=== PATIENT | male | born 1945 | race Caucasian/White ===

== ENCOUNTER 2018-05-08 13:09 | Inpatient (IN) | payer MEDICARE ==
[2018-05-08] MEDS ORDERED: Acetaminophen 500 MG TAB ONE (14:55)
[2018-05-08] MEDS ORDERED: Ibuprofen 200 MG TAB ONE (14:55)
[2018-05-08] MEDS ORDERED: Piperacillin/Tazobactam 4.5 GM VIAL ONE (15:22)
[2018-05-08] MEDS ORDERED: Azithromycin 500 MG VIAL ONE (15:33)
[2018-05-08] MEDS ORDERED: Ondansetron ODT 4 MG TAB PO PRN (17:18)
[2018-05-08 18:14] LABS: Hemoglobin 14.8 g/dL (14.0-18.0); Mean Corpuscular HGB CONC 35.4 g/dL (32.0-36.0); Mean Corpuscular Volume 87.7 fL (78.0-98.0); RBC Distribution Width 12.6 % (11.5-14.5); Red Blood Cell (RBC) Count 4.77 mill/uL (4.70-6.10); White Blood Cell (WBC) Count 12.2 thou/uL (4.8-10.8)
[2018-05-08] MEDS ORDERED: Sodium Chloride 0.9% 1,000 ML IV SCH (18:15)
[2018-05-08 18:16] LABS: #Lymphocytes 0.7 thou/uL (1.20-3.40); #Monocytes 0.6 thou/uL (0.11-0.59); #Neutrophils 10.9 thou/uL (1.40-6.50); %Basophils 0.2 % (0.0-1.0); %Lymphocytes 5.6 % (21.0-51.0); %Monocytes 4.6 % (0.0-10.0); %Neutrophils 89.6 % (42.0-75.0); Mean Platelet Volume 9.2 fL (7.4-10.4); Platelet Count 114 thou/uL (130-400)
[2018-05-08 18:34] LABS: ALT (SGPT) 10 U/L (8-55); AST (SGOT) 14 U/L (5-34); Albumin 3.7 g/dL (3.4-4.8); Alkaline Phosphatase 60 U/L (40-150); Anion Gap 13 mmol/L (10-20); BUN (Urea Nitrogen) 19 mg/dL (8.4-25.7); Bilirubin, Total 1.7 mg/dL (0.2-1.2); Calc. Creatinine Clearance 0 mL/min (70-130); Calcium 8.8 mg/dL (7.8-10.44); Carbon Dioxide 19 mmol/L (23-31); Chloride 106 mmol/L (98-107); Estimated GFR-MDRD 50; Globulin 2.6 g/dL (2.4-3.5); Glucose 143 mg/dL (83-110); Protein, Total 6.3 g/dL (5.8-8.1); Sodium 134 mmol/L (136-145)
[2018-05-08] MEDS ORDERED: VANCOMYCIN IVPB PRN (19:04)
[2018-05-08] MEDS: Sodium Chloride 0.9% 1,000 ML IV SCH (20:44)
[2018-05-08] MEDS: Piperacillin/Tazobactam 4.5 GM in Sodium Chloride 0.9% 100 ML IVPB SCH (20:56)
[2018-05-08] MEDS ORDERED: Vancomycin HCl 1 GM in Sodium Chloride 0.9% 250 ML 300 ML IVPB SCH (21:00)
[2018-05-08] MEDS: Famotidine 20 MG TAB PO SCH (21:08)
--- NOTE | 2018-05-08 21:40 | PDOC.EVN ---
Event Note - Event Note Event Note: Spoke to patient's and patient about his code status. Per patient's , patient had some ribs removed from his chest, and a wire is placed. However, patient still wants full CPR and Resuscitation. Conversation regarding DNR status, and whether to intubate or not to intubate was approximately 16 minutes. I have put the order in for Full Resuscitation.
[2018-05-08 22:05] LABS: Bilirubin Negative (Negative); Blood, Urine Small (Negative); Clarity CLEAR (Clear); Glucose, Urine (Dipstick) Negative (Negative); Leukocyte Negative (Negative); Nitrite Negative (Negative); Protein, Urine (Dipstick) 100 mg/dL (Neg-Trace); Specific Gravity, Urine 1.016 (1.002-1.036)
[2018-05-08 22:06] LABS: Bacteria/HPF None Seen HPF (None Seen); Hyaline Casts/LPF 0-3 HYALINE CAST LPF (0-3 Hyaline); RBC/HPF 0-3 HPF (0-3); Squamous Epithelial 0-3 HPF (0-3)
[2018-05-08 22:14] LABS: Legionella Urinary Ag Negative (Negative); Sperm/HPF 2+ HPF (None Seen); Strep pneumo Urine Ag NEGATIVE (NEGATIVE)
[2018-05-08] MEDS: Acetaminophen 325 MG TAB PO PRN (22:28)
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
[2018-05-09] MEDS: Piperacillin/Tazobactam 4.5 GM in Sodium Chloride 0.9% 100 ML IVPB SCH ×3 (00:39→11:06)
[2018-05-09] MEDS: Aspirin 81 mg Enteric Coated Tablet PO SCH (08:14)
[2018-05-09] MEDS: Famotidine 20 MG TAB PO SCH (08:14)
[2018-05-09] MEDS: Amlodipine 5 MG TAB PO SCH (08:14)
[2018-05-09] MEDS: Rosuvastatin 10 MG TAB PO SCH (08:14)
[2018-05-09] MEDS: Lisinopril 20 MG TAB PO SCH (08:14)
[2018-05-09] MEDS: Acetaminophen 325 MG TAB PO PRN ×3 (08:15→23:13)
[2018-05-09] MEDS: Sodium Chloride 0.9% 1,000 ML IV SCH (08:17)
[2018-05-09 11:53] LABS: #Basophils 0.1 thou/uL (0.0-0.2); #Lymphocytes 1.1 thou/uL (1.20-3.40); #Monocytes 0.5 thou/uL (0.11-0.59); #Neutrophils 7.2 thou/uL (1.40-6.50); %Basophils 1.1 % (0.0-1.0); %Eosinophils 0.3 % (0.0-10.0); %Monocytes 5.7 % (0.0-10.0); Hemoglobin 15.3 g/dL (14.0-18.0); Mean Corpuscular HGB CONC 34.5 g/dL (32.0-36.0); Mean Corpuscular Hemoglobin 30.6 pg (27.0-31.0); Mean Corpuscular Volume 88.9 fL (78.0-98.0); Platelet Count 118 thou/uL (130-400); RBC Distribution Width 12.6 % (11.5-14.5); Red Blood Cell (RBC) Count 5.01 mill/uL (4.70-6.10); White Blood Cell (WBC) Count 8.9 thou/uL (4.8-10.8)
[2018-05-09 12:13] LABS: ALT (SGPT) 18 U/L (8-55); AST (SGOT) 29 U/L (5-34); Albumin 3.9 g/dL (3.4-4.8); Alkaline Phosphatase 62 U/L (40-150); Anion Gap 13 mmol/L (10-20); BUN (Urea Nitrogen) 16 mg/dL (8.4-25.7); Bilirubin, Total 2.2 mg/dL (0.2-1.2); Calc. Creatinine Clearance 53 mL/min (70-130); Calcium 8.9 mg/dL (7.8-10.44); Carbon Dioxide 22 mmol/L (23-31); Chloride 104 mmol/L (98-107); Estimated GFR-MDRD 43; Globulin 2.8 g/dL (2.4-3.5); Glucose 92 mg/dL (83-110); Potassium 3.6 mmol/L (3.5-5.1); Protein, Total 6.7 g/dL (5.8-8.1); Sodium 135 mmol/L (136-145)
--- NOTE | 2018-05-09 14:50 | CON ---
DATE OF CONSULTATION: 05/09/2018 REASON FOR CONSULTATION: Bacteremia. HISTORY OF PRESENT ILLNESS: This is a 73-year-old with history of coronary artery disease with pacem ahsan as well as poor dentition with tooth abscess in the right molar region for the past few weeks, w ho developed early satiety with some nausea and then fever and chills. He waited to seafood. It was going to resolve, but it did not, so eventually was admitted to [facility] through [facility]. Here, we have 2/2 sets of blood cultures positive for a Streptococcus yet to be fully ident ified and susceptibility tested. The patient is awake and alert. Denies any headaches, no visual sy mptoms, sore throat, odynophagia, dysphagia, no back pain, no shoulder pain. No pain at this pacer s ite. No chest pain, no cough or dyspnea. No abdominal pain or diarrhea. No genitourinary symptoms. No other joint symptoms. PAST MEDICAL HISTORY: Coronary artery disease with prior stenting, hyperlipidemia, hypertension, cor onary artery bypass graft surgery with pacemaker insertion, gout, osteoarthritis, tooth abscess. SOCIAL HISTORY: Never smoker, drinks occasionally. 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 ALLERGIES: None. FAMILY HISTORY: Noncontributory. CURRENT MEDICATIONS: Tylenol, Norvasc, Ecotrin, Pepcid, Zestril, Toprol, Zofran, Zosyn, vancomycin. PHYSICAL EXAMINATION: VITAL SIGNS: T-max 102.9, now 101.4, blood pressure 120/62, pulse 64, respirations 18. SKIN EXAM: With no areas of skin breakdown. Peripheral IV access. No Denis catheter. HEENT: Ocular movements conjugate. Nasal passages patent. Sclerae white. Conjunctivae normal. NECK: Supple. Oral cavity with a few remaining teeth. Remainder ones with marked decay and gum dis ease. LUNGS: With clear breath sounds. HEART: S1 and S2, without obvious murmurs. Pacer pocket site without evidence of inflammatory aguilar es. ABDOMEN: Soft, mildly distended, no ascites, no organomegaly or tenderness. No bladder distention. GENITAL EXAMINATION: Normal. EXTREMITIES: No joint inflammatory activity. Pulses 1+ in dorsalis pedis. Plantar responses are fl exor. NEUROLOGIC EXAMINATION: Nonfocal. LABORATORY DATA: White cell count 12.2 and 8.9, hemoglobin 14.8, platelets 114, 89% neutrophils. So dium 134, creatinine 1.38 and 1.59, bilirubin 1.7 and now 2.2. Transaminases and alkaline phosphatas e normal, albumin 3.7. Urinalysis with 7-10 wbc's and serology with negative legionella, haemophilus , Strep pneumoniae antigen. IMAGING STUDIES: A chest CT was done on 05/08/2018 with no acute cardiopulmonary disease and pacemak er in situ. ASSESSMENT: 1. Coronary artery disease with prior pacemaker. 2. Poor dentition with tooth abscess. 3. Streptococcal bacteremia, 2/2 sets on admission. 4. Pacemaker. DISCUSSION: Differential diagnosis includes pacemaker colonization/endocarditis secondary to one of the oral cavity Streptococci. An alternate source is not apparent at this time, and I think that thi s is the more likely scenario. Bacteremia without evidence of involvement of the pacemaker is also p ossible. Recommend a BRANDY after transthoracic echo. If the transthoracic echo was diagnostic, then m ay need replacement or removal of the pacemaker. If the transthoracic echo is normal, then proceed w ith BRANDY, and if that is normal, then treat him with 4 weeks with likely Rocephin or cefazolin dependi ng on the MICs of the organism and final identification.
[2018-05-09] MEDS: cefTRIAXone\\ROCEPHIN 2 GM in Sodium Chloride 0.9% 100 ML IVPB SCH (14:56)
[2018-05-09] MEDS ORDERED: Azithromycin 500 MG in Sodium Chloride 0.9% 250 ML 250 ML IVPB SCH (16:00)
--- NOTE | 2018-05-09 18:31 | PDOC.PN ---
- Subjective Encounter Start Date: 05/09/18 Encounter Start Time: 18:31 Seen and examined. NAD. No overnight events. - Objective MAR Reviewed: Yes Vital Signs & Weight: Vital Signs (12 hours) Temp Pulse Resp BP BP Pulse Ox 05/09/18 15:00 100.1 F H 68 18 169/77 H 96 05/09/18 11:10 98.2 F 64 18 120/62 94 L 05/09/18 08:14 84 130/57 L 05/09/18 07:12 101.4 F H 84 18 130/57 L 93 L Weight Weight 205 lb 4.993 oz I&O: 05/08/18 05/09/18 05/10/18 06:59 06:59 06:59 Intake Total 1050 2060 Output Total 700 1550 Balance 350 510 Result Diagrams: 05/09/18 11:45 05/09/18 11:45 EKG Reviewed by me: Yes (occassional pvC's and bigeminy) Phys Exam - Physical Examination Constitutional: NAD HEENT: PERRLA, moist MMs Neck: no JVD Respiratory: no wheezing, no rales, no rhonchi Cardiovascular: RRR, no significant murmur, no rub Gastrointestinal: non-tender, no distention Musculoskeletal: no edema, pulses present Neurological: non-focal, normal sensation, moves all 4 limbs Psychiatric: normal affect, A&O x 3 Skin: no rash, normal turgor, cap refill <2 seconds Dx/Plan (1) Septicemia Code(s): A41.9 - SEPSIS, UNSPECIFIED ORGANISM Status: Acute Comment: continue antibiotics. ID consulted. 2D echo ordered. follow up on ECHO. Consider Cardio consult if warranted. IV fluids. control fever. (2) CAD (coronary artery disease) Code(s): I25.10 - ATHSCL HEART DISEASE OF [place] CORONARY ARTERY W/O ANG PCTRS Status: Acute Comment: on tele. continue meds. will monitor (3) HLD (hyperlipidemia) Code(s): E78.5 - HYPERLIPIDEMIA, UNSPECIFIED Status: Acute Comment: continue meds (4) HTN (hypertension) Code(s): I10 - ESSENTIAL (PRIMARY) HYPERTENSION Status: Acute Comment: continue meds - Plan DVT proph w/SCDs * . Review of Systems - Review of Systems Constitutional: chills. negative: fever, sweats, weakness, malaise, other Eyes: negative: Pain, Vision Change, Conjunctivae Inflammation, Eyelid Inflammation, Redness, Other ENT: negative: Ear Pain, Ear Discharge, Nose Pain, Nose Discharge, Nose Congestion, Mouth Pain, Mouth Swelling, Throat Pain, Throat Swelling, Other Respiratory: negative: Cough, Dry, Shortness of Breath, Hemoptysis, SOB with Excertion, Pleuritic Pain, Sputum, Wheezing Cardiovascular: negative: chest pain, palpitations, orthopnea, paroxysmal nocturnal dyspnea, edema, light headedness, other Gastrointestinal: negative: Nausea, Vomiting, Abdominal Pain, Diarrhea, Constipation, Melena, Hematochezia, Other Genitourinary: negative: Dysuria, Frequency, Incontinence, Hematuria, Retention , Other Musculoskeletal: negative: Neck Pain, Shoulder Pain, Arm Pain, Back Pain, Hand Pain, Leg Pain, Foot Pain, Other Skin: negative: Rash, Lesions, Jan, Bruising, Other Neurological: negative: Weakness, Numbness, Incoordination, Change in Speech, Confusion, Seizures, Other - Medications/Allergies Allergies/Adverse Reactions: Allergies Allergy/AdvReac Type Severity Reaction Status Date / Time No Known Drug Allergies Allergy Verified 05/08/18 20:38 Medications: Current Medications Acetaminophen (Tylenol) 650 mg PO Q4H PRN PRN Reason: Headache/Fever or Pain Last Admin: 05/09/18 23:13 Dose: 650 mg Amlodipine Besylate (Norvasc) 5 mg PO DAILY [facility] Last Admin: 05/09/18 08:14 Dose: 5 mg Aspirin (Ecotrin) 81 mg PO DAILY [facility] Last Admin: 05/09/18 08:14 Dose: 81 mg Famotidine (Pepcid) 20 mg PO DAILY [facility] Hydralazine HCl (Apresoline) 10 mg SLOW IVP Q6H PRN PRN Reason: SBP>170 Last Admin: 05/09/18 20:05 Dose: 10 mg Sodium Chloride (Normal Saline 0.9%) 1,000 mls @ 70 mls/hr IV .[id number] [facility] Last Admin: 05/10/18 05:20 Dose: 1,000 mls Vancomycin HCl 1.5 gm/ Sodium (Chloride) 300 mls @ 200 mls/hr IVPB 2200 [facility] Last Admin: 05/09/18 21:34 Dose: 300 mls Ceftriaxone Sodium 2 gm/ (Sodium Chloride) 100 mls @ 200 mls/hr IVPB Q24HR [facility] Last Admin: 05/09/18 14:56 Dose: 100 mls Lisinopril (Zestril) 20 mg PO DAILY [facility] Last Admin: 05/09/18 08:14 Dose: 20 mg Metoprolol Succinate (Toprol Xl) 100 mg PO DAILY [facility] Last Admin: 05/09/18 08:14 Dose: 100 mg Miscellaneous Medication (Pharmacy To Dose) 1 each IVPB PRN PRN PRN Reason: SEPSIS Ondansetron HCl (Zofran Odt) 4 mg PO Q6H PRN PRN Reason: Nausea/Vomiting Rosuvastatin Calcium (Crestor) 10 mg PO DAILY [facility] Last Admin: 05/09/18 08:14 Dose: 10 mg
[2018-05-09] MEDS: hydrALAZINE 20 MG/ML VIAL SLOW IVP PRN (20:05)
[2018-05-09] MEDS: Vancomycin HCl 1.5 GM in Sodium Chloride 0.9% 250 ML 300 ML IVPB SCH (21:34)
[2018-05-10] MEDS: Sodium Chloride 0.9% 1,000 ML IV SCH ×3 (05:20→22:33)
--- NOTE | 2018-05-10 07:40 | PDOC.PN ---
- Subjective Encounter Start Date: 05/10/18 Encounter Start Time: 07:39 Subjective: feels much better, fever, chills gone - Objective MAR Reviewed: Yes Vital Signs & Weight: Vital Signs (12 hours) Temp Pulse Resp BP BP Pulse Ox 05/10/18 03:30 98.3 F 65 20 148/72 H 92 L 05/10/18 00:30 99.9 F H 05/09/18 23:10 100.9 F H 70 16 167/79 H 95 05/09/18 21:30 75 152/72 H 05/09/18 20:05 74 186/85 H 05/09/18 19:40 99.1 F 74 16 186/85 H 97 Weight Weight 204 lb 6.4 oz I&O: 05/09/18 05/10/18 05/11/18 06:59 06:59 06:59 Intake Total 1050 3610 Output Total 700 3950 Balance 350 -340 Result Diagrams: 05/09/18 11:45 05/09/18 11:45 Phys Exam - Physical Examination Neck: no JVD Respiratory: clear to auscultation bilateral Cardiovascular: RRR, no significant murmur Gastrointestinal: soft, non-tender, positive bowel sounds Musculoskeletal: no edema, pulses present Dx/Plan (1) Bacteremia due to Gram-positive bacteria Code(s): R78.81 - BACTEREMIA Status: Acute (2) Pacemaker Code(s): Z95.0 - PRESENCE OF CARDIAC PACEMAKER Status: Chronic (3) CAD (coronary artery disease) Code(s): I25.10 - ATHSCL HEART DISEASE OF [place] CORONARY ARTERY W/O ANG PCTRS Status: Chronic Qualifiers: Coronary Disease-Associated Artery/Lesion type: [place] artery [place] vs. transplanted heart: [place] heart Associated angina: without angina Qualified Code(s): I25.10 - Atherosclerotic heart disease of [place] coronary artery without angina pectoris Comment: on tele. continue meds. will monitor (4) HLD (hyperlipidemia) Code(s): E78.5 - HYPERLIPIDEMIA, UNSPECIFIED Status: Chronic Comment: continue meds (5) HTN (hypertension) Code(s): I10 - ESSENTIAL (PRIMARY) HYPERTENSION Status: Chronic Qualifiers: Hypertension type: essential hypertension Qualified Code(s): I10 - Essential (primary) hypertension Comment: continue meds (6) Septicemia Code(s): A41.9 - SEPSIS, UNSPECIFIED ORGANISM Status: Acute Comment: continue antibiotics. ID consulted. 2D echo ordered. follow up on ECHO. Consider Cardio consult if warranted. IV fluids. control fever. - Plan cont iv antibx -: needs BRANDY, consult Dr Muñoz -: selected home meds * .
[2018-05-10] MEDS ORDERED: PROPOFOL 200 MG/20 ML VIAL ONE (09:26)
[2018-05-10] MEDS: Ubidecarenone 50 MG CAP PO SCH (09:44)
[2018-05-10] MEDS: Rosuvastatin 10 MG TAB PO SCH (09:44)
[2018-05-10] MEDS: Amlodipine 5 MG TAB PO SCH (09:45)
[2018-05-10] MEDS: Lisinopril 20 MG TAB PO SCH (09:45)
[2018-05-10] MEDS: hydrALAZINE 20 MG/ML VIAL SLOW IVP PRN (09:45)
[2018-05-10] MEDS: Famotidine 20 MG TAB PO SCH (09:45)
[2018-05-10] MEDS: Aspirin 81 mg Enteric Coated Tablet PO SCH (09:46)
[2018-05-10] MEDS ORDERED: PROPOFOL 20 ML ONE (14:56)
[2018-05-10] MEDS: cefTRIAXone\\ROCEPHIN 2 GM in Sodium Chloride 0.9% 100 ML IVPB SCH (16:40)
[2018-05-10 21:24] LABS: Vancomycin, Trough 6.4 ug/mL
[2018-05-10] MEDS: Vancomycin HCl 1.5 GM in Sodium Chloride 0.9% 250 ML 300 ML IVPB SCH (22:33)
--- NOTE | 2018-05-11 07:48 | ECHO ---
TRANSESOPHAGEAL ECHOCARDIOGRAM: DATE OF PROCEDURE: 05/10/18 INDICATION: This is a 73-year-old gentleman with sepsis and a pacemaker. DESCRIPTION OF PROCEDURE: The patient was taken to the PACU. The patient was sedated by anesthesiology. A transesophageal probe was placed in the distal esophagus and stomach. Echocardiographic images were obtained. The transesophageal probe was removed. FINDINGS: 1. Normal left ventricular systolic function. 2. Normal mitral and aortic valves. 3. Mild mitral regurgitation. 4. Mild tricuspid regurgitation. 5. Pacemaker wires noted in right ventricle. 6. No vegetations were noted on aortic, mitral, or tricuspid valve. 7. Atherosclerotic debris in the descending aorta. IMPRESSION: No obvious vegetations noted on the pacemaker wires or cardiac valves, but only technically limited v iews were obtained.
[2018-05-11] MEDS: Rosuvastatin 10 MG TAB PO SCH (08:58)
[2018-05-11] MEDS: Lisinopril 20 MG TAB PO SCH (08:58)
[2018-05-11] MEDS: Ubidecarenone 50 MG CAP PO SCH (08:58)
[2018-05-11] MEDS: Aspirin 81 mg Enteric Coated Tablet PO SCH (08:59)
[2018-05-11] MEDS: Famotidine 20 MG TAB PO SCH (08:59)
[2018-05-11] MEDS: Amlodipine 5 MG TAB PO SCH (08:59)
[2018-05-11] MEDS: Vancomycin HCl 1.25 GM in Sodium Chloride 0.9% 250 ML 250 ML IVPB SCH ×2 (09:17→21:20)
--- NOTE | 2018-05-11 09:49 | PDOC.PN ---
- Subjective Encounter Start Date: 05/11/18 Encounter Start Time: 09:47 Subjective: no fever, chills, etc - Objective MAR Reviewed: Yes Vital Signs & Weight: Vital Signs (12 hours) Temp Pulse Resp BP Pulse Ox 05/11/18 07:44 98.6 F 68 16 176/85 H 95 05/11/18 04:00 98.2 F 66 20 162/79 H 96 05/10/18 22:44 98.6 F 67 20 148/73 H 95 Weight Weight 199 lb 14.4 oz I&O: 05/10/18 05/11/18 05/12/18 06:59 06:59 06:59 Intake Total 3610 1872 Output Total 3950 2200 Balance -340 -328 Result Diagrams: 05/09/18 11:45 05/09/18 11:45 Phys Exam - Physical Examination Neck: no JVD Respiratory: no rales, clear to auscultation bilateral Cardiovascular: RRR, no significant murmur Gastrointestinal: soft, positive bowel sounds Musculoskeletal: no edema Dx/Plan (1) Bacteremia due to Gram-positive bacteria Code(s): R78.81 - BACTEREMIA Status: Acute (2) Pacemaker Code(s): Z95.0 - PRESENCE OF CARDIAC PACEMAKER Status: Chronic (3) CAD (coronary artery disease) Code(s): I25.10 - ATHSCL HEART DISEASE OF [place] CORONARY ARTERY W/O ANG PCTRS Status: Chronic Qualifiers: Coronary Disease-Associated Artery/Lesion type: [place] artery [place] vs. transplanted heart: [place] heart Associated angina: without angina Qualified Code(s): I25.10 - Atherosclerotic heart disease of [place] coronary artery without angina pectoris Comment: on tele. continue meds. will monitor (4) HLD (hyperlipidemia) Code(s): E78.5 - HYPERLIPIDEMIA, UNSPECIFIED Status: Chronic Comment: continue meds (5) HTN (hypertension) Code(s): I10 - ESSENTIAL (PRIMARY) HYPERTENSION Status: Chronic Qualifiers: Hypertension type: essential hypertension Qualified Code(s): I10 - Essential (primary) hypertension Comment: continue meds (6) Septicemia Code(s): A41.9 - SEPSIS, UNSPECIFIED ORGANISM Status: Acute Comment: continue antibiotics. ID consulted. 2D echo ordered. follow up on ECHO. Consider Cardio consult if warranted. IV fluids. control fever. - Plan no evidence for infected valve, hardware -: cont rocephin, discuss ongoing tx with ID * .
[2018-05-11] MEDS: cefTRIAXone\\ROCEPHIN 2 GM in Sodium Chloride 0.9% 100 ML IVPB SCH (16:04)
--- NOTE | 2018-05-11 18:20 | PRG ---
DATE OF SERVICE: 05/11/2018 SUBJECTIVE: Mr. Portillo is feeling well. He had a BRANDY. Results are discussed below. No headaches, no chest pain, no abdominal pain, no diarrhea, no genitourinary symptoms. OBJECTIVE: VITAL SIGNS: T-max 98.6, other vital signs are normal except for some elevation in systolic blood pr essure. GENERAL: Awake, alert, oriented. LUNGS: Clear. HEART: S1, S2 regular rate. ABDOMEN: Soft. Not distended or tender. No ascites. No bladder distention. LABORATORY DATA: White cell count down to 8.9, hemoglobin 15, platelets 118,000. Sodium 135, creati nine 1.59. Transesophageal echocardiogram completed yesterday did not show any evidence of pacemaker vegetations or other vegetations. The organism identified is a Streptococcus mitis/oralis. ASSESSMENT AND DISCUSSION: Coronary artery disease with prior pacemaker, poor dentition, tooth absce ss, Streptococcal mitis/oralis bacteremia. DISCUSSION: In view of the negative BRANDY, we will have to take the evidence of face value and treat h im with oral Augmentin or amoxicillin for a total of 2 weeks and refer him to dental surgeon for wilfredo mary of those infected teeth. I have explained to the patient that a BRANDY has a limit of 3 mm in terms of resolution and he may still have colonization of the leads. In that regard, he may experience re crudescence of the fever. Once the antimicrobials are discontinued, in that case, blood cultures nee d to be repeated, and then he may require removal of the BRANDY if the same organism is retrieved. In t hat regard, I would probably, if that happens then just remove the device and treat him for 4 weeks w ith IV Rocephin. Evidently, we are hoping that this will not be necessary.
[2018-05-11] MEDS: Sodium Chloride 0.9% 1,000 ML IV SCH ×2 (18:39→21:24)
[2018-05-11] MEDS: hydrALAZINE 20 MG/ML VIAL SLOW IVP PRN (18:41)
[2018-05-11 22:13] LABS: Mycoplasma pneumoniae IgG AB 124 U/mL (0-99); Mycoplasma pneumoniae IgM AB Less than 770 U/mL (0-769)
[2018-05-12 04:57] VITALS: BMI 27.1
[2018-05-12 08:15] VITALS: BP 173/83; TEMP 98.1
--- NOTE | 2018-05-12 09:11 | DIS ---
DATE OF ADMISSION: 05/08/2018 DATE OF DISCHARGE: 05/12/2018 DISPOSITION: Discharged home. PRIMARY CARE PROVIDER: Dr. Deacon Mac. FINAL DIAGNOSES: Sepsis bacteremia with Streptococcus mitis, dental abscess, coronary artery disease , dyslipidemia, hypertension, chronic kidney disease stage 3. DISCHARGE MEDICATIONS: Amoxicillin 500 mg p.o. q.i.d., metoprolol 100 mg a day, Norvasc 5 mg a day, Coenzyme Q10 100 mg a day, aspirin 81 mg a day, Crestor 10 mg a day, lisinopril 20 mg p.o. daily. ALLERGIES: No known drug allergies. CODE STATUS: FULL. PENDING AT THE TIME OF DISCHARGE: Nothing. HOSPITAL COURSE: The patient admitted to [facility] out of [facility] with fever and chills. His cultures were drawn. He was started on IV antibiotics, broad spect rum. His initial laboratory showed creatinine 1.32, BUN 17, CO2 22, sodium 134, potassium 4.3. Whit e count 13.0, hemoglobin 16.3, platelet count 132,000. Lactic acid was 1.4. Patient's blood culture grew Streptococcus mitis sensitive to Rocephin and ampicillin. The patient underwent a standard ech ocardiogram on 05/09/2018 revealed no vegetations on the valves, underwent a BRANDY on 05/10/[address] Pedro Pablo Menon, which revealed no vegetations on the valves or on the pacemaker wires. FOLLOWUP LABORATORY: On 05/09/2018, white cell count did come down to 8.9. On the chemistries, his creatinine remained in the 1.3 to 1.4 range for chronic kidney disease stage 3. The patient has been afebrile. He is in consultation with Dr. Santiago. He is now being [facility] To follow up with a dentist, he was found during his hospital stay to have a dental abscess, which is improved dramatically during his stay and to also follow up with his PCP in 1 week. CONSULTATIONS: Dr. Serg Santiago, Dr. Pedro Pablo Menon. PROCEDURES: None. At the time of discharge, his cardiorespiratory exam was normal. Vital signs wer e stable. He has been advised that after finishing his amoxicillin, if the fevers come back, to retu rn he will be recultured and we will proceed from there.
[2018-05-12] MEDS: Famotidine 20 MG TAB PO SCH (09:19)
[2018-05-12] MEDS: Aspirin 81 mg Enteric Coated Tablet PO SCH (09:19)
[2018-05-12] MEDS: Ubidecarenone 50 MG CAP PO SCH (09:20)
[2018-05-12] MEDS: Rosuvastatin 10 MG TAB PO SCH (09:20)
[2018-05-12] MEDS: Amlodipine 5 MG TAB PO SCH (09:20)
[2018-05-12] MEDS: Lisinopril 20 MG TAB PO SCH (09:20)
[2018-05-12] MEDS: Vancomycin HCl 1.25 GM in Sodium Chloride 0.9% 250 ML 250 ML IVPB SCH (10:22)
== END 2018-05-12 12:30 | disposition home or self-care (01) | DRG 872 ==
LOC: ERS 13:09 → T4-B 17:58 → 2NO 22:24
PROVIDERS: ADMIT Internal Medicine; ATTEND Internal Medicine
DX: A41.9 Sepsis, unspecified organism (principal); I25.10 Atherosclerotic heart disease of native coronary artery without angina pectoris; Z98.61 Coronary angioplasty status; I10 Essential (primary) hypertension; Z95.1 Presence of aortocoronary bypass graft; K04.7 Periapical abscess without sinus; I12.9 Hypertensive chronic kidney disease with stage 1 through stage 4 chronic kidney disease, or unspecified chronic kidney disease; N18.3 Chronic kidney disease, stage 3 (moderate); Z95.0 Presence of cardiac pacemaker
CPT/HCPCS: 36415; 80053; 80202; 83605; 85025; 87086; 87899; 93005; 93306; 93312; J0360; J0456; J0696; J2543; J2704; J3370; J7050

== ENCOUNTER 2021-02-04 12:07 | Observation (INO) | payer MEDICARE ==
[2021-02-04 13:00] LABS: #Basophils 0.1 thou/uL (0.0-0.2); #Eosinphils 0.1 thou/uL (0.0-0.7); #Lymphocytes 1.7 thou/uL (1.20-3.40); #Monocytes 0.9 thou/uL (0.11-0.59); #Neutrophils 7.5 thou/uL (1.40-6.50); %Basophils 0.6 % (0.0-1.0); %Eosinophils 0.7 % (0.0-10.0); %Lymphocytes 16.4 % (21.0-51.0); %Neutrophils 73.3 % (42.0-75.0); Hemoglobin 16.8 g/dL (14.0-18.0); Mean Corpuscular HGB CONC 32.8 g/dL (32.0-36.0); Mean Corpuscular Hemoglobin 29.5 pg (27.0-31.0); Mean Corpuscular Volume 89.7 fL (78.0-98.0); RBC Distribution Width 13.2 % (11.5-14.5); White Blood Cell (WBC) Count 10.2 thou/uL (4.8-10.8)
[2021-02-04 13:18] LABS: ALT (SGPT) 11 U/L (8-55); AST (SGOT) 16 U/L (5-34); Albumin 4.5 g/dL (3.4-4.8); Alkaline Phosphatase 77 U/L (40-110); Anion Gap 12 mmol/L (10-20); BUN (Urea Nitrogen) 19 mg/dL (8.4-25.7); Bilirubin, Total 1.2 mg/dL (0.2-1.2); Calc. Creatinine Clearance 0 mL/min (70-130); Calcium 9.9 mg/dL (7.8-10.44); Carbon Dioxide 25 mmol/L (23-31); Chloride 106 mmol/L (98-107); Globulin 3.3 g/dL (2.4-3.5); Glucose 93 mg/dL (83-110); Potassium 4.5 mmol/L (3.5-5.1); Protein, Total 7.8 g/dL (5.8-8.1); Sodium 138 mmol/L (136-145)
[2021-02-04 13:19] LABS: Large Platelets SLIGHT; MDiff Complete? YES; Mean Platelet Volume 10.7 fL (7.4-10.4); Platelet Count 162 thou/uL (130-400); Platelet Morphology Comment Appears Adequate; RBC Morphology Normal
[2021-02-04 13:40] LABS: CKMB 1.9 ng/mL (0-6.6)
[2021-02-04] MEDS ORDERED: Aspirin Chewable 81 MG TAB ONE (16:45)
[2021-02-04 17:30] LABS: Troponin I 0.042 ng/mL (< 0.028)
[2021-02-04] MEDS ORDERED: Acetaminophen 325 MG TAB PO PRN (20:16)
[2021-02-04] MEDS ORDERED: Ondansetron PF 4 MG/2 ML Vial IVP PRN (20:16)
[2021-02-04] MEDS ORDERED: hydrALAZINE 20 MG/ML VIAL SLOW IVP PRN (20:33)
[2021-02-04 21:10] LABS: Troponin I 0.045 ng/mL (< 0.028)
[2021-02-05 03:09] VITALS: BMI 26.9
[2021-02-05 05:10] LABS: #Basophils 0.1 thou/uL (0.0-0.2); #Eosinphils 0.2 thou/uL (0.0-0.7); #Lymphocytes 2.1 thou/uL (1.20-3.40); #Monocytes 0.7 thou/uL (0.11-0.59); #Neutrophils 4.4 thou/uL (1.40-6.50); %Basophils 1.1 % (0.0-1.0); %Eosinophils 2.6 % (0.0-10.0); %Lymphocytes 28.6 % (21.0-51.0); %Monocytes 9.8 % (0.0-10.0); Hemoglobin 15.4 g/dL (14.0-18.0); Mean Corpuscular HGB CONC 32.5 g/dL (32.0-36.0); Mean Corpuscular Hemoglobin 29.1 pg (27.0-31.0); Mean Corpuscular Volume 89.4 fL (78.0-98.0); Mean Platelet Volume 11.1 fL (7.4-10.4); Platelet Count 130 thou/uL (130-400); RBC Distribution Width 13.2 % (11.5-14.5); Red Blood Cell (RBC) Count 5.29 mill/uL (4.70-6.10); White Blood Cell (WBC) Count 7.5 thou/uL (4.8-10.8)
[2021-02-05 05:20] LABS: Albumin (w/Testosterone Panel) 3.8 g/dL
[2021-02-05 05:23] LABS: Anion Gap 11 mmol/L (10-20); BUN (Urea Nitrogen) 16 mg/dL (8.4-25.7); Calc. Creatinine Clearance 61 mL/min (70-130); Carbon Dioxide 23 mmol/L (23-31); Chloride 108 mmol/L (98-107); Glucose 98 mg/dL (83-110); Sodium 138 mmol/L (136-145)
[2021-02-05 05:44] LABS: Testosterone, Free 103.4 pg/mL (47-244); Testosterone, Total 634.5 ng/dL (221-716)
[2021-02-05] MEDS: Lisinopril 20 MG TAB PO SCH (09:11)
[2021-02-05] MEDS: Aspirin 81 mg Enteric Coated Tablet PO SCH (09:11)
[2021-02-05 11:34] LABS: SARS-CoV-2 PCR by NAA Not Detected (NotDetected)
[2021-02-05] MEDS ORDERED: Rosuvastatin 10 MG TAB PO SCH (21:00)
[2021-02-06 04:36] LABS: #Basophils 0.1 thou/uL (0.0-0.2); #Eosinphils 0.2 thou/uL (0.0-0.7); #Monocytes 0.9 thou/uL (0.11-0.59); #Neutrophils 6.4 thou/uL (1.40-6.50); %Eosinophils 2.4 % (0.0-10.0); %Monocytes 9.3 % (0.0-10.0); %Neutrophils 66.3 % (42.0-75.0); Mean Corpuscular HGB CONC 32.4 g/dL (32.0-36.0); Mean Corpuscular Volume 89.7 fL (78.0-98.0); Mean Platelet Volume 11.1 fL (7.4-10.4); Platelet Count 143 thou/uL (130-400); RBC Distribution Width 13.4 % (11.5-14.5); Red Blood Cell (RBC) Count 5.49 mill/uL (4.70-6.10); White Blood Cell (WBC) Count 9.7 thou/uL (4.8-10.8)
[2021-02-06 04:59] LABS: Anion Gap 13 mmol/L (10-20); BUN (Urea Nitrogen) 16 mg/dL (8.4-25.7); Calc. Creatinine Clearance 67 mL/min (70-130); Calcium 9.2 mg/dL (7.8-10.44); Carbon Dioxide 18 mmol/L (23-31); Chloride 109 mmol/L (98-107); Glucose 100 mg/dL (83-110); Sodium 136 mmol/L (136-145)
[2021-02-06] MEDS ORDERED: Sodium Chloride 0.9% 1,000 ML IV SCH (06:00)
[2021-02-06] MEDS ORDERED: Lidocaine 1% (PF) 30 ML VIAL ONE (06:41)
[2021-02-06] MEDS ORDERED: CEFAZOLIN 1 GM VIAL ONE (06:41)
[2021-02-06] MEDS ORDERED: Gentamicin 80 MG/2 ML VIAL ONE (06:41)
[2021-02-06] MEDS ORDERED: Midazolam HCl 2 mg/2 ml Vial ONE (07:21)
[2021-02-06] MEDS ORDERED: Fentanyl 100 MCG/2 ML VIAL ONE (07:21)
[2021-02-06] MEDS ORDERED: Acetaminophen/Codeine 30-300mg Tablet PO PRN ×2 (08:27)
[2021-02-06] MEDS: Lisinopril 20 MG TAB PO SCH (08:50)
[2021-02-06] MEDS: Aspirin 81 mg Enteric Coated Tablet PO SCH (08:50)
[2021-02-06] MEDS ORDERED: Cephalexin 250 MG CAP PO SCH (09:00)
[2021-02-06 12:19] VITALS: BP 144/63; TEMP 98.7
== END 2021-02-06 14:45 | disposition home or self-care (01) ==
LOC: ERS 12:07 → 2NO 18:02 → INTOOBSV 18:02
PROVIDERS: ADMIT Internal Medicine; ATTEND Internal Medicine
PROC: 0JPT0PZ Removal of Cardiac Rhythm Related Device from Trunk Subcutaneous Tissue and Fascia, Open Approach (ICD-10-PCS; principal; 2021-02-06)
PROC: 0JH606Z Insertion of Pacemaker, Dual Chamber into Chest Subcutaneous Tissue and Fascia, Open Approach (ICD-10-PCS; 2021-02-06)
DX: Z45.010 Encounter for checking and testing of cardiac pacemaker pulse generator [battery] (principal); R23.2 Flushing; R61 Generalized hyperhidrosis; R77.8 Other specified abnormalities of plasma proteins; Q25.46 Tortuous aortic arch; I25.10 Atherosclerotic heart disease of native coronary artery without angina pectoris; I13.0 Hypertensive heart and chronic kidney disease with heart failure and stage 1 through stage 4 chronic kidney disease, or unspecified chronic kidney disease; I50.32 Chronic diastolic (congestive) heart failure; N18.30 Chronic kidney disease, stage 3 unspecified; E78.5 Hyperlipidemia, unspecified; M10.9 Gout, unspecified; M19.90 Unspecified osteoarthritis, unspecified site; E78.00 Pure hypercholesterolemia, unspecified; F17.290 Nicotine dependence, other tobacco product, uncomplicated; R00.1 Bradycardia, unspecified; Z79.82 Long term (current) use of aspirin; Z79.899 Other long term (current) drug therapy; Z95.1 Presence of aortocoronary bypass graft; Z20.822 Contact with and (suspected) exposure to COVID-19
CPT/HCPCS: 33228; 71045 ×2; 80048 ×2; 80053; 82553; 84270; 84403; 84443; 84484 ×2; 85025 ×3; 93005; 96374; 99284; C1785; G0378 ×3; U0003; U0005; 36415; 87635; 99152; 99153; J0360; J0690; J1580; J2001; J2250; J3010

== ENCOUNTER 2023-08-09 00:41 | Emergency (ER) | payer MEDICARE ==
[2023-08-09 01:15] LABS: Troponin I 0.015 ng/mL (< 0.028)
[2023-08-09] MEDS ORDERED: hydrALAZINE 20 MG/ML VIAL ONE ×2 (01:25→02:03)
[2023-08-09 01:49] LABS: #Basophils 0.1 thou/uL (0.0-0.2); #Eosinphils 0.3 thou/uL (0.0-0.7); #Neutrophils 4.8 thou/uL (1.40-6.50); %Basophils 0.9 % (0.0-1.0); %Eosinophils 3.4 % (0.0-10.0); %Lymphocytes 18.7 % (21.0-51.0); %Monocytes 12.9 % (0.0-10.0); %Neutrophils 63.7 % (42.0-75.0); Hematocrit 39.9 % (42.0-52.0); Hemoglobin 13.1 g/dL (14.0-18.0); Mean Corpuscular HGB CONC 32.8 g/dL (32.0-36.0); Mean Corpuscular Volume 91.3 fl (78.0-98.0); Mean Platelet Volume 11.9 fL (7.4-10.4); Platelet Count 166 10x3/uL (130-400); RBC Distribution Width 13.7 % (11.5-14.5); Red Blood Cell (RBC) Count 4.37 mill/uL (4.70-6.10); White Blood Cell (WBC) Count 7.5 10x3/uL (4.8-10.8)
[2023-08-09 01:54] LABS: ALT (SGPT) 12 U/L (8-55); AST (SGOT) 18 U/L (5-34); Albumin 4.4 g/dL (3.4-4.8); Alkaline Phosphatase 62 U/L (40-110); Anion Gap 16 mmol/L (10-20); BUN (Urea Nitrogen) 24 mg/dL (8.4-25.7); Bilirubin, Total 1.1 mg/dL (0.2-1.2); Calc. Creatinine Clearance 0 mL/min (70-130); Calcium 8.8 mg/dL (7.8-10.44); Carbon Dioxide 21 mmol/L (23-31); Chloride 106 mmol/L (98-107); Estimated GFR 42; Globulin 2.4 g/dL (2.4-3.5); Glucose 97 mg/dL (83-110); Potassium 4.4 mmol/L (3.5-5.1); Protein, Total 6.8 g/dL (5.8-8.1); Sodium 139 mmol/L (136-145)
== END 2023-08-09 03:22 | disposition home or self-care (01) ==
LOC: ERS 00:41
DX: I10 Essential (primary) hypertension (principal); E78.5 Hyperlipidemia, unspecified; Z79.899 Other long term (current) drug therapy; Z79.82 Long term (current) use of aspirin
CPT/HCPCS: 71045; 80053; 84484; 85025; 93005; J0360; 96374; 96376

== ENCOUNTER 2023-09-12 11:13 | Emergency (ER) | payer MEDICARE ==
[2023-09-12 12:18] LABS: #Monocytes 0.7 thou/uL (0.11-0.59); #Neutrophils 6.6 thou/uL (1.40-6.50); %Basophils 0.4 % (0.0-1.0); %Eosinophils 0.1 % (0.0-10.0); %Lymphocytes 6.4 % (21.0-51.0); %Monocytes 8.5 % (0.0-10.0); %Neutrophils 84.1 % (42.0-75.0); Hematocrit 40.2 % (42.0-52.0); Hemoglobin 12.9 g/dL (14.0-18.0); Mean Corpuscular HGB CONC 32.1 g/dL (32.0-36.0); Mean Corpuscular Hemoglobin 29.4 pg (27.0-31.0); Mean Corpuscular Volume 91.6 fl (78.0-98.0); Platelet Count 175 10x3/uL (130-400); RBC Distribution Width 13.3 % (11.5-14.5); Red Blood Cell (RBC) Count 4.39 mill/uL (4.70-6.10); White Blood Cell (WBC) Count 7.9 10x3/uL (4.8-10.8)
[2023-09-12] MEDS ORDERED: Ondansetron PF 4 MG/2 ML Vial ONE (12:19)
[2023-09-12 12:44] LABS: ALT (SGPT) 19 U/L (8-55); AST (SGOT) 25 U/L (5-34); Alkaline Phosphatase 58 U/L (40-110); Anion Gap 12 mmol/L (10-20); BUN (Urea Nitrogen) 20 mg/dL (8.4-25.7); Bilirubin, Total 1.2 mg/dL (0.2-1.2); Calc. Creatinine Clearance 0 mL/min (70-130); Calcium 8.9 mg/dL (7.8-10.44); Carbon Dioxide 22 mmol/L (23-31); Chloride 109 mmol/L (98-107); Estimated GFR 41; Globulin 2.6 g/dL (2.4-3.5); Glucose 104 mg/dL (83-110); Lipase 13 U/L (8-78); Potassium 3.8 mmol/L (3.5-5.1); Protein, Total 6.6 g/dL (5.8-8.1); Sodium 139 mmol/L (136-145)
[2023-09-12 12:48] LABS: Troponin I Less than 0.010 ng/mL (< 0.028)
[2023-09-12] MEDS ORDERED: Iopamidol-370 76% 500 ML MDV (1 ML CHARGE) ONE (14:30)
[2023-09-12 14:46] LABS: Bacteria/HPF None Seen HPF (None Seen); Bilirubin Negative (Negative); Blood, Urine Negative (Negative); CAUTI Indications for Culture Dysuria,urgency,freq; Clarity Clear (Clear); Glucose, Urine (Dipstick) Normal (Negative); Ketone, Urine Negative (Negative); Leukocyte Negative Leu/uL (Negative); Nitrite Negative (Negative); Protein, Urine (Dipstick) 50 mg/dL (Neg-Trace); RBC/HPF 0-3 HPF (0-3); Squamous Epithelial 0-3 HPF (0-3); Urobilinogen Normal mg/dL (Less than 2); WBC/HPF 0-3 HPF (0-3); pH, Urine 5.5 (5.0-9.0)
[2023-09-12 14:47] LABS: Specific Gravity, Urine 1.045 (1.002-1.036); Sperm/HPF Rare HPF (None Seen)
[2023-09-12 14:48] LABS: Urine Culture Reflex No No
== END 2023-09-12 15:15 | disposition home or self-care (01) ==
LOC: ERS 11:13
DX: R11.2 Nausea with vomiting, unspecified (principal); R19.7 Diarrhea, unspecified; K86.9 Disease of pancreas, unspecified; I25.10 Atherosclerotic heart disease of native coronary artery without angina pectoris; E78.5 Hyperlipidemia, unspecified; I10 Essential (primary) hypertension; Z79.899 Other long term (current) drug therapy; Z79.82 Long term (current) use of aspirin
CPT/HCPCS: 36415; 74177; 80053; 81001; 83690; 84484; 85025; 93005; 96361; 96374; J2405; Q9967